=== PATIENT | male | born 2000 | race Two or more races ===

== ENCOUNTER 2022-07-06 13:37 | Emergency (ER) | payer SELFPAY ==
[~2022-07-06] VITALS: Ht 167.6 cm; Wt 62.0 kg
[2022-07-06 13:40] VITALS: BP 135/85
[2022-07-06] MEDS ORDERED: AMOX-494 MT (14:59)
[2022-07-06] MEDS ORDERED: IBUP-1523 MT (14:59)
== END 2022-07-06 15:08 | disposition home or self-care (01) ==
LOC: ER 13:37
DX: S02.5XXA Fracture of tooth (traumatic), initial encounter for closed fracture (principal); S09.93XA Unspecified injury of face, initial encounter; M25.521 Pain in right elbow; Z76.0 Encounter for issue of repeat prescription; Y04.2XXA Assault by strike against or bumped into by another person, initial encounter; Y93.89 Activity, other specified; Y92.89 Other specified places as the place of occurrence of the external cause; Y99.8 Other external cause status
CPT/HCPCS: 73070; 99283